=== PATIENT | female | born 1990 ===

== ENCOUNTER 2020-01-13 11:41 | Inpatient (IN) | payer OTHER ==
[2020-01-13 14:41] VITALS: BMI 22.8
[2020-01-13] MEDS ORDERED: Diphenoxylate HCl/Atropine Tablet PO PRN (15:05)
[2020-01-13] MEDS ORDERED: NS / Oxytocin 40 units/1000ml 1,000 ML IV PRN (15:05)
[2020-01-13] MEDS ORDERED: Ondansetron PF 4 MG/2 ML Vial IVP PRN ×2 (15:05→22:24)
[2020-01-13] MEDS ORDERED: Butorphanol Tartrate 1 MG/ML VIAL SLOW IVP PRN (15:05)
[2020-01-13] MEDS ORDERED: Methylergonovine 0.2 MG/ML VIAL IM PRN (15:05)
[2020-01-13] MEDS ORDERED: Ibuprofen 800 MG TAB PO PRN (15:05)
[2020-01-13] MEDS ORDERED: Lidocaine 1% (PF) 30 ML VIAL SC PRN (15:05)
[2020-01-13] MEDS ORDERED: HYDROcodone/Acetaminophen 5/325 mg Tablet PO PRN ×2 (15:05)
[2020-01-13] MEDS ORDERED: hydrALAZINE 20 MG/ML VIAL SLOW IVP PRN (15:05)
[2020-01-13] MEDS ORDERED: Lactated Ringer's 1,000 ML IV PRN (15:05)
[2020-01-13] MEDS ORDERED: Carboprost 250 MCG/ML AMP IM PRN (15:05)
[2020-01-13] MEDS ORDERED: Promethazine HCl 25 MG/ML VIAL IM PRN ×2 (15:05→22:24)
[2020-01-13] MEDS ORDERED: NS w/ Oxytocin 10 units 500 ML IV SCH (15:15)
[2020-01-13 15:35] LABS: Hemoglobin 12.1 g/dL (12.0-16.0); Mean Corpuscular Hemoglobin 32.2 pg (27.0-31.0); Mean Corpuscular Volume 94.7 fL (78.0-98.0); Mean Platelet Volume 8.6 fL (7.4-10.4); Platelet Count 206 thou/uL (130-400); RBC Distribution Width 12.3 % (11.5-14.5); Red Blood Cell (RBC) Count 3.77 mill/uL (4.20-5.40); White Blood Cell (WBC) Count 15.6 thou/uL (4.8-10.8)
[2020-01-13 16:18] LABS: HBSAg Index 0.19 S/CO (0-0.99); Hep B Surf Ag Non-Reactive S/CO (NonReactive); Syphilis Antibody Nonreactive (Nonreactive); Syphilis Antibody Index 0.03 S/CO (<1.00 Non-Reactive)
--- NOTE | 2020-01-13 17:20 | PDOC.LDHP ---
Labor and Delivery H&P Chief complaint: contractions HPI: Patient has been mikey since 0200 am. She labored at home with her drawbridge tender, when then dropped her off at the hospital, but did not stay with her. Denies LOF, VB. Affirms movement. Current gestational age (weeks): 40 (1 day) Due date: 01/12/20 Dating criteria: last menstrual period (verified with US) Grav: 2 Para: 1 OB History Details: 2010 PCS [id number]. Due to failure of decent. Current complications: none Abnormal US findings: No Past Medical History: Rosacea migraines Current medications: pre-leatha vitamins Previous surgical history: low tranverse CS Allergies/Adverse Reactions: Allergies Allergy/AdvReac Type Severity Reaction Status Date / Time Latex, Natural Rubber Allergy Intermediate Verified 01/13/20 17:08 Social history: none - Physical Exam Vital signs reviewed and normal: yes General: breathing through contractions Lungs: nonlabored breathing Abdomen: gravid Extremeties: no edema FHT: category 1 - Vaginal Exam cm dilated: 3 Effacement: 100% Station: -1 - OB Labs Blood type: O RH: positive Antibody Screen: negative HIV: negative RPR: negative HEPSAg: negative 1 hour GCT: negative GBS: negative Urine drug screen: negative Rubella: immune - Assessment L&D Assessment: term patient in labor (early latent labor) - Plan Plan: admit to L&D, labor augmentation if indicated, informed consent obtained ( Patient understand risk of TOLAC to include uterine rupte in less than 1% of patients and double that when using pitocin. Patient understands and agrees and whichs to continue with TOLAC. Patient understands less likely sucess rate due to failure of decent. Dr. Torres at [facility] has seen patient and discussed risks of TOLAC as well. Acceptable candidate.) -: continuous monitoring due to high risk TOLAC status. Recheck in 4 hours - if no cervical change, discuss options with patient to include Pitocin or augmentation vs. AROM. vs discharge home Dr. Durham the OB hospitalist has been notified of TOLAC pt on unit for emergencies.
[2020-01-13] MEDS ORDERED: Promethazine HCl 25 MG/ML VIAL IM SCH (19:45)
--- NOTE | 2020-01-13 21:32 | PDOC.LDPN ---
Labor & Delivery Progress Note - Subjective Subjective: painful contractions - Objective General: resting Dilation: 4 Effacement: 100% Station: -2 FHT: category 2, late decelerations - Assessment (1) History of section Code(s): Z98.891 - HISTORY OF UTERINE SCAR FROM PREVIOUS SURGERY Current Visit : Yes Status: Acute (2) Late deceleration of heart rate Code(s): O36.8390 - MATERN CARE FOR ABNLT FETL HRT RATE OR RHYM, UNSP TRI, UNSP Current Visit: Yes Status: Acute Plan: other (proceed with delivery for Cat 2 FHTs) -: OB hospitalist is notified. anesthesia is paged.
[2020-01-13] MEDS ORDERED: Fentanyl 100 MCG/2 ML VIAL ONE (21:41)
[2020-01-13] MEDS ORDERED: MORPHINE 5 MG/10 ML PF VIAL ONE (21:41)
[2020-01-13] MEDS ORDERED: EPHEDRINE 25 MG/5 ML SYRINGE ONE (21:42)
[2020-01-13] MEDS ORDERED: Dexamethasone 4 mg/ml Vial ONE (21:42)
[2020-01-13] MEDS ORDERED: PHENYLEPHRINE-NS 100 MCG/ML 10 ML SYRINGE ONE (21:42)
[2020-01-13] MEDS ORDERED: Ketorolac Tromethamine 30 MG/ML VIAL ONE (21:42)
[2020-01-13] MEDS ORDERED: Oxytocin 10 UNITS/ML VIAL ONE (21:42)
[2020-01-13] MEDS ORDERED: Ondansetron PF 4 MG/2 ML Vial ONE (21:42)
[2020-01-13] MEDS ORDERED: Azithromycin 500 MG in Sodium Chloride 0.9% 250 ML 250 ML IVPB SCH (21:45)
[2020-01-13] MEDS ORDERED: Bicitra 30 ML UDCUP PO SCH (21:45)
[2020-01-13] MEDS ORDERED: CEFAZOLIN 2 GM in Premix Bag 1 BAG IVPB SCH (21:45)
[2020-01-13] MEDS ORDERED: Ondansetron HCl/PF 4 MG/2 ML Vial IVP PRN (22:24)
[2020-01-13] MEDS ORDERED: diphenhydrAMINE 50 MG/ML VIAL IVP PRN (22:24)
[2020-01-13] MEDS ORDERED: Promethazine HCl 25 MG SUPP PR PRN (22:24)
[2020-01-13] MEDS ORDERED: Naloxone HCl 0.4 mg/ml Vial IVP PRN ×2 (22:24)
[2020-01-13] MEDS ORDERED: Naloxone HCl 0.4 mg/ml Vial IV PRN (22:24)
[2020-01-13] MEDS ORDERED: Midazolam HCl 2 mg/2 ml Vial ONE (22:28)
[2020-01-13] MEDS ORDERED: Communication Order-Pharmacy FS SCH (22:30)
[2020-01-13] MEDS ORDERED: Promethazine HCl 25 MG/ML VIAL ONE (22:31)
--- NOTE | 2020-01-13 23:27 | OP ---
DATE OF PROCEDURE: 01/13/2020 PREOPERATIVE DIAGNOSES: Prior sections, spontaneous onset of labor, and arrest of dilatation with persistent late decelerations. POSTOPERATIVE DIAGNOSES: Prior sections, spontaneous onset of labor, and arrest of dilatation with persistent late decelerations. PROCEDURE PERFORMED: Repeat low-transverse section without extension. BOX TRUCK WASHER: Mira Tavarez, Certified Nurse Supervisor [employer]. ANESTHESIA: Subarachnoid block. ANESTHESIOLOGIST: Reagan Rojas MD QBL: Pending, but grossly normal. MEDICATIONS: 2 g of Ancef pre-incision and 500 of Zithromax pre-incision. DVT PROPHYLAXIS: SCDs. DRAINS: Bauer to gravity. OPERATIVE FINDINGS: 1. Vigorous female infant, cephalic presentation, clear fluid, to nursery. Weight and Apgars pending. 2. Normal-appearing uterus, tubes, and ovaries bilaterally. 3. Hemostasis, clear urine. COUNTS: Correct at the end of the procedure. DISPOSITION: Recovery room in good condition. DESCRIPTION OF PROCEDURE: After obtaining appropriate informed consent, the patient was taken to the operating room, where subarachnoid block achieved without difficulty. The patient was prepped and draped in the usual manner. Previous Pfannenstiel incision was incised sharply and extended superiorly and laterally with a knife, carried down the fascia, extended superiorly and laterally with curved Harrison scissors. Rectus was dissected off sharply, superiorly and inferiorly and divided in the midline. Peritoneum was entered bluntly taking care to avoid trauma to the underlying viscera. The Matthew O retractor was placed inside. Low-transverse hysterotomy was made above the level of the vesicouterine peritoneal fold, extended superiorly and laterally with finger fractionation. The infant's head elevated to the hysterotomy, delivered on the abdomen, suctioned, cord clamped and cut, handed off to the team in attendance. Usual cord blood sample obtained. Placenta removed manually. Uterus left in site. Hysterotomy was noted without extension, closed using a running locking #1 Monocryl suture. Small area of bleeding on the left margin of it was rendered hemostatic with [id number] of #1 chromic. The gutters were irrigated out bilaterally. Re-inspection of the hysterotomy revealed it to be dry. The Matthew O retractor was removed. The rectus was inspected and noted to be dry. Counts were correct x1. Fascia reapproximated with running continuous 0 PDS suture x1. Subcutaneous tissue was less than 1 cm thickness, rendered hemostatic with Bovie cautery irrigated and the skin reapproximated using 4-0 Monocryl and Dermabond. The patient was taken to recovery room in good condition. Job ID: [id number]
[2020-01-14] MEDS ORDERED: Ondansetron PF 4 MG/2 ML Vial IVP PRN ×2 (00:53)
[2020-01-14] MEDS ORDERED: NS / Oxytocin 40 units/1000ml 1,000 ML IV SCH ×2 (00:53)
[2020-01-14] MEDS ORDERED: Simethicone Chewable 80 MG TAB PO PRN (00:53)
[2020-01-14] MEDS ORDERED: Misoprostol 200 MCG TAB PR PRN (00:53)
[2020-01-14] MEDS ORDERED: Methylergonovine 0.2 MG/ML VIAL IM PRN (00:53)
[2020-01-14] MEDS ORDERED: Zolpidem Tartrate 5 MG TAB PO PRN (00:53)
[2020-01-14] MEDS ORDERED: hydrALAZINE 20 MG/ML VIAL SLOW IVP PRN ×2 (00:53)
[2020-01-14] MEDS ORDERED: Lanolin Ointment 7 GM TUBE TOP PRN ×2 (00:53)
[2020-01-14] MEDS ORDERED: diphenhydrAMINE 25 MG CAP PO PRN (00:53)
[2020-01-14] MEDS ORDERED: Ibuprofen 800 MG TAB PO SCH (00:53)
[2020-01-14] MEDS ORDERED: HYDROcodone/Acetaminophen 5/325 mg Tablet PO PRN ×4 (00:53→10:30)
[2020-01-14] MEDS ORDERED: Promethazine HCl 25 MG/ML VIAL IM PRN (00:53)
[2020-01-14] MEDS: Ketorolac Tromethamine 30 MG/ML VIAL IVP PRN ×2 (03:06→09:26)
[2020-01-14] MEDS ORDERED: Fentanyl 100 MCG/2 ML VIAL SLOW IVP SCH (05:30)
[2020-01-14] MEDS: Lactated Ringer's 1,000 ML IV SCH ×3 (05:45→15:07)
[2020-01-14 07:04] LABS: Hemoglobin 10.4 g/dL (12.0-16.0); Mean Corpuscular HGB CONC 33.8 g/dL (32.0-36.0); Mean Corpuscular Hemoglobin 32.8 pg (27.0-31.0); Mean Platelet Volume 8.2 fL (7.4-10.4); Platelet Count 165 thou/uL (130-400); RBC Distribution Width 12.2 % (11.5-14.5); Red Blood Cell (RBC) Count 3.16 mill/uL (4.20-5.40); White Blood Cell (WBC) Count 16.7 thou/uL (4.8-10.8)
[2020-01-14] MEDS: Acetaminophen 650 MG Suppository PR SCH (07:21)
--- NOTE | 2020-01-14 08:16 | PRG ---
DATE OF SERVICE: 01/14/2020 SUBJECTIVE: The patient is doing well, approximately 8 hours, status post repeat section. Hematocrit went from 35% to 30%. OBJECTIVE: VITAL SIGNS: Stable. Good urine output. ABDOMEN: Soft, nontender. Incisions intact and dry. The patient has multiple narcotic and pain medicine allergies. These seem to be more side effects than anything else and seem to point more toward a chronic abusive state. We discussed what works for her and we will private branch exchange service adviser to Percocet on a very limited basis. Discharge medications of Percocet and ibuprofen were sent to [facility] in [place]. Routine postoperative care anticipated. Job ID: [id number]
[2020-01-14] MEDS ORDERED: Prenatal Vitamin 1 TAB PO SCH (09:00)
[2020-01-14] MEDS ORDERED: Adacel (T-DAP) 0.5 ML SYRINGE IM ONE (09:00)
[2020-01-14] MEDS: Docusate Calcium (SURFAK) 240 MG CAP PO SCH ×2 (09:26→22:09)
[2020-01-14] MEDS: Ferrous Sulfate 325 MG TAB PO SCH ×2 (09:32→23:50)
[2020-01-14] MEDS: Prenatal Vitamin 1 TAB PO SCH (09:32)
[2020-01-14] MEDS: oxyCODONE/Acetaminophen 5 mg/325 mg Tablet PO PRN ×3 (09:47→19:49)
[2020-01-14] MEDS ORDERED: oxyCODONE/Acetaminophen 5 mg/325 mg Tablet PO PRN (10:30)
[2020-01-14] MEDS: Meperidine HCl/PF 25 MG/ML VIAL IM PRN ×2 (12:41→23:03)
[2020-01-14] MEDS: Ibuprofen 800 MG TAB PO SCH ×2 (14:50→22:08)
[2020-01-15] MEDS: oxyCODONE/Acetaminophen 5 mg/325 mg Tablet PO PRN ×6 (00:49→22:35)
[2020-01-15] MEDS: Lactated Ringer's 1,000 ML IV SCH ×2 (00:54→07:13)
[2020-01-15 01:13] LABS: Amphetamine Not Detected (NotDetected); Barbiturates Screen Not Detected (NotDetected); Benzodiazepine Screen Not Detected (NotDetected); Cocaine Metabolite Screen Not Detected (NotDetected); Medtox Control Line Valid? VALID (VALID); Medtox Reader # READER 4; Methadone Not Detected (NotDetected); Methamphetamine Not Detected (NotDetected); Opiate Screen Not Detected (NotDetected); Oxycodone Screen Detected (NotDetected); Phencyclidine (PCP) Not Detected (NotDetected); THC/Cannabinoid Screen Not Detected (NotDetected); Tricyclic Screen Not Detected (NotDetected)
[2020-01-15] MEDS: Ibuprofen 800 MG TAB PO SCH ×3 (05:23→22:35)
[2020-01-15] MEDS: Simethicone Chewable 80 MG TAB PO PRN ×2 (05:35→15:00)
[2020-01-15] MEDS ORDERED: Ibuprofen 800 MG TAB PO SCH (06:00)
[2020-01-15] MEDS: Ferrous Sulfate 325 MG TAB PO SCH (07:14)
--- NOTE | 2020-01-15 08:14 | PRG ---
DATE OF SERVICE: 01/15/2020 PRIMARY OB: Mira Tavarez CNM SUBJECTIVE: The patient is a 29-year-old female, postop day 2, status post a repeat lower transverse section after a failed trial of labor after for non-reassuring heart tones. The patient reports this morning that she has had uncontrolled pain as yesterday. She has not been taking her oral medications in attempt to reduce use of narcotics. However, the patient reports that when she was up to walking, she noticed how much she was actually hurting and realized she needs to be taking them more regularly. The patient reports decreased lochia and is ambulating and tolerating a diet. OBJECTIVE: VITAL SIGNS: This morning, blood pressure is 99/53, temperature 97.8, pulse of 85, and respiratory rate of 16. GENERAL: She appears to be in no acute distress. She is alert and oriented, cooperative and pleasant to interact with. HEENT: Head is normocephalic, atraumatic. Fundus is firm at the umbilicus. Incision is clean, dry, and intact. EXTREMITIES: Nontender, nonedematous. ASSESSMENT AND PLAN: The patient is postop day 2, status post a repeat section, inconsistently taking her oral medications yesterday. Plan today is to get on a more scheduled regimen with her oral medications to see if she can have good pain control. Plan is for discharge tomorrow unless she otherwise indicates a desire for discharge this evening, but she has been asked to call out to her nurse or provider if her current regimen is not sufficiently managing her pain, so we can make adjustments as needed. Job ID: [id number]
[2020-01-15] MEDS: Docusate Calcium (SURFAK) 240 MG CAP PO SCH ×2 (08:21→22:35)
[2020-01-15] MEDS: Prenatal Vitamin 1 TAB PO SCH (08:21)
--- NOTE | 2020-01-15 09:40 | PDOC.PP ---
Post Progress Note Post Day #: 2 Subjective: pt is sleepy. Breast feeding PO intake tolerated: yes Flatus: yes Ambulation: yes Vital Signs (12 hours) Temp Pulse Resp BP 01/15/20 05:20 97.8 F 85 16 99/53 L 01/15/20 00:43 98.1 F 90 18 116/54 L Weight Weight 142 lb - Physical Examination General: NAD Respiratory: non-labored breathing Abdominal: lochia, no distention, appropriately TTP Extremities: negative homans (B) Skin: CS incision dry & intact, no rash Neurological: no gross focal deficits Psychiatric: A&Ox3, normal affect Result Diagrams: 01/14/20 06:48 Additional Labs: Post Labs Blood Type O POSITIVE 01/13/20 16:32 Hep Bs Antigen Non-Reactive S/CO (NonReactive) 01/13/20 15:25 (1) History of section Code(s): Z98.891 - HISTORY OF UTERINE SCAR FROM PREVIOUS SURGERY Status: Acute (2) Late deceleration of heart rate Code(s): O36.8390 - MATERN CARE FOR ABNLT FETL HRT RATE OR RHYM, UNSP TRI, UNSP Status: Acute - Assessment/Plan A: Now P2 s/p RCS for non reassuring FHTs. Failed TOLAC NML exam P: routine care ambulate discharge home tomorrow
[2020-01-15] MEDS: Meperidine HCl/PF 25 MG/ML VIAL IM PRN ×2 (12:48→20:54)
[2020-01-16] MEDS: Lactated Ringer's 1,000 ML IV SCH ×2 (01:53→10:15)
[2020-01-16] MEDS: oxyCODONE/Acetaminophen 5 mg/325 mg Tablet PO PRN ×4 (03:21→15:47)
[2020-01-16] MEDS: Ibuprofen 800 MG TAB PO SCH ×2 (05:48→13:30)
[2020-01-16 08:05] VITALS: BP 108/52; TEMP 97.7
[2020-01-16] MEDS: Prenatal Vitamin 1 TAB PO SCH (10:17)
[2020-01-16] MEDS: Docusate Calcium (SURFAK) 240 MG CAP PO SCH (10:17)
[2020-01-16] MEDS: Ferrous Sulfate 325 MG TAB PO SCH (10:17)
--- NOTE | 2020-01-16 12:47 | PDOC.PP ---
Post Progress Note Post Day #: 3 Subjective: Doing okay. Reviewed goals and pain management. PO intake tolerated: yes Flatus: yes Ambulation: yes Vital Signs (12 hours) Temp Pulse Resp BP Pulse Ox 01/16/20 07:30 97.7 F 79 18 108/52 L 98 Weight Weight 142 lb - Physical Examination General: NAD Cardiovascular: RRR Respiratory: clear to auscultation bilaterally Abdominal: + bowel sounds (x 4 quadrants.), lochia (minimal), no distention, appropriately TTP Fundus firm & at: -2 Extremities: negative homans (B) Skin: CS incision dry & intact (Erythema from tape over surrounding incision.) Neurological: no gross focal deficits Psychiatric: A&Ox3, normal affect Result Diagrams: 01/14/20 06:48 Additional Labs: Post Labs Blood Type O POSITIVE 01/13/20 16:32 Hep Bs Antigen Non-Reactive S/CO (NonReactive) 01/13/20 15:25 (1) History of section Code(s): Z98.891 - HISTORY OF UTERINE SCAR FROM PREVIOUS SURGERY Status: Acute (2) Late deceleration of heart rate Code(s): O36.8390 - MATERN CARE FOR ABNLT FETL HRT RATE OR RHYM, UNSP TRI, UNSP Status: Acute - Assessment/Plan A: PPD 3. P: discharge home PT spoke to father and will have her Rx brought to her along with OTC gas X and stool softener. 10 day incision check.
== END 2020-01-16 16:35 | disposition home or self-care (01) | DRG 788 ==
LOC: L&D/OP 11:41 → L&D 14:38 → 3SW 01-14 01:08
PROVIDERS: ADMIT Obstetrics & Gynecology; ATTEND Obstetrics & Gynecology
PROC: 10D00Z1 Extraction of Products of Conception, Low, Open Approach (ICD-10-PCS; principal; 2020-01-13)
DX: O76 Abnormality in fetal heart rate and rhythm complicating labor and delivery (principal); Z3A.40 40 weeks gestation of pregnancy; Z37.0 Single live birth; Z91.040 Latex allergy status
CPT/HCPCS: 36415; 51702; 80306; 85027; 86780; 86850; 86900; 86901; 87340; 99285; J0595; J1100; J1885; J2175; J2250; J2274; J2405; J2550; J2590; J3010